=== PATIENT | male | born 1995 | race Caucasian/White ===

== ENCOUNTER 2020-12-02 07:53 | Emergency (ER) | payer BC, SELFPAY ==
--- NOTE | ~2020-12-02 | CT_ITS ---
EXAMINATION: CT abdomen pelvis w con INDICATION: Right lower quadrant abdominal pain TECHNIQUE: Computed tomographic images of the abdomen and pelvis were obtained after the administrati on of 100 cc of Omnipaque 350 intravenous contrast. The dose-length product (DLP) was 197.46 mGy-cm. Automated exposure control and iterative reconstruction technique were employed. COMPARISON: None available FINDINGS: The lung bases are clear. The heart size is normal. The liver, spleen, pancreas, gallbladde r, and adrenal glands are normal. Cysts of the left kidney measure up to 11 mm. The right kidney is u nremarkable. No pathologically enlarged abdominal or pelvic lymph nodes are identified. There is no f ree intraperitoneal gas or evidence of bowel obstruction. The appendix is normal. The visualized osse ous structures are unremarkable. IMPRESSION: 1. No CT correlate for the patient's symptoms. Reviewed, dictated and finalized at location B.
[2020-12-02 08:31] VITALS: BP 125/79; PULSE 55; RESP 16; TEMP 36.1; O2SAT 100
[2020-12-02 08:35] LABS: Basophils Absolute Auto 0.1 K/mm3 (0.0-0.1); Basophils Percent Auto 0.7 % (0.2-1.2); Eosinophils Absolute Auto 0.5 K/mm3 (0-0.3); Eosinophils Percent Auto 5.6 % (0-4.4); Hematocrit 46.8 % (42.0-52.0); Hemoglobin 15.4 g/dL (14.0-18.0); Immature Granulocyte Absolute 0.02 K/mm3 (0.00-0.031); Immature Granulocyte Percent A 0.2 % (0-0.5); Lymphocytes Absolute Auto 1.95 K/mm3 (0.9-3.2); Lymphocytes Percent Auto 23.1 % (18.3-44.2); Mean Corpuscular HGB Conc 32.9 g/dl (32-36); Mean Corpuscular Hemoglobin 29.8 pg (26-34); Mean Corpuscular Volume 90.5 fl (80-100); Mean Platelet Volume 10.7 fl (7.4-10.4); Monocytes Absolute Auto 0.9 K/mm3 (0.1-0.6); Monocytes Percent Auto 10.5 % (2.6-8.5); Neutrophils Absolute Auto 5.1 K/mm3 (1.3-6.7); Neutrophils Percent Auto 59.9 % (45.5-73.1); Platelet Count Result 254 k/mm3 (150-375); Red Blood Count 5.17 M/mm3 (4.6-6.20); Red Cell Distribution Width 12.2 % (11.5-14.5); White Blood Count 8.5 K/mm3 (4.5-10.0)
[2020-12-02 08:42] LABS: Add Urine Microscopic? YES; Appearance Urine Cloudy (Clear); Bacteria Urine Trace /hpf; Bilirubin Urine 1+ (Negative); Blood Urine 2+ (Negative); Calcium Oxalate Crystals Urine Present /hpf; Color Urine Amber (Yellow); Glucose Urine UA Negative (Negative); Ketones Urine Trace mg/dL (Negative); Leukocyte Esterase Ur Negative LEU/UL (Negative); Mucus Urine Heavy /lpf; Nitrate Urine Negative (Negative); Protein Urine 2+ mg/dL (Negative); RBC Urine 0-2 /hpf (0-2); Squamous Epithelial Cell Urine Rare /hpf (Few)
[2020-12-02 08:45] LABS: Anion Gap 12 mmol/L (8-16); Blood Urea Nitrogen 18 mg/dL (9-20); Carbon Dioxide 26 mmol/L (22-30); Chloride 101 mmol/L (98-107); Estimated CRCL calculation 78 ml/min; Estimated Glomerular Filt Rate > 60; Glucose 113 mg/dL (65-110); Potassium 3.8 mmol/L (3.4-5.0); Sodium 139 mmol/L (137-145)
[2020-12-02 08:55] LABS: Specific Grav Ur 1.035 (1.001-1.035)
--- NOTE | 2020-12-02 08:55 | ED.GENADULT ---
HPI - General Adult General Chief complaint: Abdominal Pain Stated complaint: abd pain Time Seen by Provider: 12/02/20 08:55 Source: patient Mode of arrival: ambulatory Limitations: no limitations History of Present Illness HPI narrative: Patient is a 25-year-old male who presents for evaluation of right-sided abdominal pain. Patient reports sharp pain in his right side which is severe in nature. He denies any radiation of the pain. He denies testicular pain. No previous history such as this. He has associated nausea and vomiting. He reports mild diarrhea. Denies constipation. He denies any history of chronic abdominal pain. No history of intra-abdominal surgeries. Patient does not drink alcohol. He reports marijuana use, denies other drug use. He denies any chest pain or shortness of breath. Denies fever or chills. He denies penile pain or discharge. Related Data Allergies Allergy/AdvReac Type Severity Reaction Status Date / Time risperidone Allergy Mild Hives / Verified 02/20/16 19:52 Red Face [place] Allergy Severe Swelling Uncoded 02/20/16 19:52 Review of Systems Review of Systems: CONSTITUTIONAL: Denies fever HEENT: Denies congestion or rhinorrhea CARDIOVASCULAR: Denies chest pain RESPIRATORY: Denies cough or dyspnea. GASTROINTESTINAL: Reports abdominal pain and nausea : reports mild dysuria SKIN: Denies rash MUSCULOSKELETAL: Denies back pain NEUROLOGIC: Denies headache [facility] Social History Social History (Updated 12/02/20 @ 09:18 by Maria M Ambrosio MD) Smoking status: Current every day smoker Tobacco type: cigarettes Alcohol intake: former Alcohol use details: socially, no alcohol for past three weeks Substance use: current Substance use type: marijuana Living arrangements: with family Gender identity (if verbalized by the patient): Male Exam Narrative: GENERAL: Awake, alert, conversant, tearful HEAD: Normocephalic, atraumatic. EYES: PERRLA and EOMI. ENT: Nares clear, no rhinorrhea or epistaxis. Mucous membranes moist. NECK: Supple. CHEST: No respiratory distress, breathing even and non labored HEART: Regular rate, sinus rhythm ABDOMEN:Non distended, tender in the right lower quadrant with guarding, no rebound, nonrigid, no epigastric tenderness, no left upper or left lower quadrant tenderness EXTREMITIES: Normal range of motion. No edema. SKIN: Warm, dry, no rash. NEURO:No focal deficits. Alert and oriented x3 Course Vital Signs Vital signs: Vital Signs Temperature 36.1 C L 12/02/20 08:31 Pulse Rate 55 L 12/02/20 08:31 Respiratory Rate 16 12/02/20 08:31 Blood Pressure 125/79 12/02/20 08:31 Pulse Oximetry 100 12/02/20 08:31 Temperature 36.1 C L 12/02/20 08:31 Pulse Rate 87 12/02/20 14:14 Respiratory Rate 15 12/02/20 14:14 Blood Pressure 116/70 12/02/20 14:14 Pulse Oximetry 98 12/02/20 14:14 Medical Decision Making MDM Narrative Medical decision making narrative: Patient presenting for evaluation of right-sided lower abdominal pain. At the time of assessment, patient is quite tearful, has right lower quadrant abdominal pain with guarding present. Initial presentation is concern for possible nephrolithiasis or appendicitis. Lab and imaging evaluations are reviewed and patient has no leukocytosis, no evidence of acute intra-abdominal pathology on imaging. Urinalysis does have some hematuria present, perhaps patient did pass a small kidney stone prior to arrival or evaluation. As he is also endorsing dysuria, I feel that we can treat patient with oral antibiotics as this may be consistent with infection. Pt with low risk factors by history for STI (other than age) as he is monogamous with his . He denies any penile discharge, however will send UA for G/C as well. Patient reassessed and his right lower quadrant pain on exam is very mild. Pt without testicular pain to be consistent with torsion. 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
[2020-12-02] MEDS: SODIUM CHLORIDE 0.9% IV 1,000 ML 999 ML IV CONT (09:24)
[2020-12-02] MEDS: MORPHINE SULFATE (*CRX) 4 MG/ML INJ IV PUSH (09:24)
[2020-12-02] MEDS: ONDANSETRON INJ 4 MG/2 ML VIAL IV PUSH (09:24)
[2020-12-02 10:04] LABS: Alanine Aminotransferase 13 U/L (4-50); Alkaline Phosphatase 84 U/L (38-126); Aspartate Amino Transferase 25 U/L (17-59); Bilirubin,Total 1.2 mg/dL (0.2-1.3); Lipase 50 U/L (23-300)
[2020-12-02 10:38] VITALS: BP 107/59; PULSE 51; RESP 15; O2SAT 100
[2020-12-02 11:40] VITALS: BP 106/63; PULSE 57; RESP 17; O2SAT 98
[2020-12-02 12:27] VITALS: BP 115/55; PULSE 58; RESP 15; O2SAT 100
[2020-12-02] MEDS: KETOROLAC 15 MG/ML VIAL (*BKC) IV PUSH (13:08)
[2020-12-02 14:14] VITALS: BP 116/70; PULSE 87; RESP 15; O2SAT 98
== END 2020-12-02 14:16 | disposition home or self-care (01) ==
PROVIDERS: Emergency Provider Emergency Medicine
DX: E86.0 Dehydration (principal); R10.9 Unspecified abdominal pain; R31.9 Hematuria, unspecified; F17.200 Nicotine dependence, unspecified, uncomplicated
CPT/HCPCS: 36415; 74177; 80048; 80076; 81001; 83690; 85025; 87491; 87591; 96361; 96374; 96375; 99284; J1885; J2270; J2405; J7030; Q9967

== ENCOUNTER 2020-12-03 00:10 | Emergency (ER) | payer BC, SELFPAY ==
[2020-12-03 00:14] VITALS: BP 116/66; PULSE 53; RESP 17; TEMP 36.8; O2SAT 99
[2020-12-03 03:05] VITALS: BP 107/77; PULSE 47; RESP 14; O2SAT 100
--- NOTE | 2020-12-03 03:05 | PC.NURSE ---
VORB ERP Lynch no orders to complete on this patient at this time.
--- NOTE | 2020-12-03 04:20 | PC.NURSE ---
Pt. tearful on stretcher requesting pain medication. no orders at this time.
[2020-12-03 04:30] VITALS: BP 116/74; PULSE 74; RESP 19; O2SAT 97
[2020-12-03] MEDS: KETOROLAC (*BKC) 60 MG/2 ML VIAL IM (04:57)
[2020-12-03] MEDS: CYCLOBENZAPRINE HCL 10 MG TABLET PO (04:58)
[2020-12-03 05:30] VITALS: BP 121/72; PULSE 51; RESP 17; O2SAT 99
--- NOTE | 2020-12-03 05:54 | ED.GENADULT ---
HPI - General Adult General Chief complaint: Urogenital-Male Stated complaint: flank pain Time Seen by Provider: 12/03/20 04:23 Source: patient and RN notes reviewed Mode of arrival: ambulatory Limitations: no limitations History of Present Illness HPI narrative: This is a 25 year old male who presents for right flank pain. Patient was evaluated for right flank pain yesterday morning. He had labs, UA and CT abdomen /pelvis performed. His test were unremarkable other than possible UTI. He was discharge with bentyl , antibiotics and ibuprofen. PAtient states his pain resolved at discharge, but his pain returned last night. His pain is located right lower back and he states it does not radiate. He had nausea and vomiting yesterday but he denies nausea and vomiting tonight with his pain. He does not have fever or chills. He denies testicular pain or swelling. He states his pain is intermittent and sharp, and it seems worse with movement. Related Data Allergies Allergy/AdvReac Type Severity Reaction Status Date / Time risperidone Allergy Mild Hives / Verified 02/20/16 19:52 Red Face [place] Allergy Severe Swelling Uncoded 02/20/16 19:52 Review of Systems Review of Systems: All systems reviewed & are unremarkable except as noted in HPI and below PMFSH Past Medical History Medical History (Updated 12/03/20 @ 06:01 by Brandi Lynch MD) Patient denies significant medical history Social History Social History (Updated 12/02/20 @ 09:18 by Maria M Ambrosio MD) Smoking status: Current every day smoker Tobacco type: cigarettes Alcohol intake: former Alcohol use details: socially, no alcohol for past three weeks Substance use: current Substance use type: marijuana Gender identity (if verbalized by the patient): Male Exam Const: General: no acute distress and alert Orientation/consciousness: patient oriented x3 Eyes: EOM: EOMs intact bilaterally Chest: Chest palpation & inspection: normal inspection of the chest Resp: Effort & Inspection: normal respiratory effort and no retractions Auscultation: clear to auscultation bilaterally Cardio: Rate: regular rate Rhythm: regular rhythm Heart sounds: no murmurs GI: GI Palp: Yes Soft to palpation, No Tenderness to palpation present (GI) and No Guarding due to palpation present (GI) Auscultation: normal bowel sounds : General: Yes no CVA tenderness Penis: Yes circumcised Scrotum: scrotum normal Testes: epididymides normal Skin: General skin exam: normal color Rashes: no rashes Neuro: General: patient oriented x3, moves all extremities and CN's II-XI intact bilaterally Course Reevaluation(s) Reevaluation #1: PAtient states he feels better and he is ready for discharge home. I will prescribe muscle relaxer. Date: 12/03/20 Time: 05:58 Vital Signs Vital signs: Vital Signs Temperature 98.2 F 12/03/20 00:14 Pulse Rate 53 L 12/03/20 00:14 Respiratory Rate 17 12/03/20 00:14 Blood Pressure 116/66 12/03/20 00:14 Pulse Oximetry 99 12/03/20 00:14 Temperature 98.2 F 12/03/20 00:14 Pulse Rate 49 L 12/03/20 06:00 Respiratory Rate 14 12/03/20 06:00 Blood Pressure 128/71 12/03/20 06:00 Pulse Oximetry 99 12/03/20 06:00 Medical Decision Making Vital Signs Vital Signs: Vital Signs Temperature 98.2 F 12/03/20 00:14 Pulse Rate 53 L 12/03/20 00:14 Respiratory Rate 17 12/03/20 00:14 Blood Pressure 116/66 12/03/20 00:14 Pulse Oximetry 99 12/03/20 00:14 Temperature 98.2 F 12/03/20 00:14 Pulse Rate 49 L 12/03/20 06:00 Respiratory Rate 14 12/03/20 06:00 Blood Pressure 128/71 12/03/20 06:00 Pulse Oximetry 99 12/03/20 06:00 Lab Data Lab results reviewed: Yes I reviewed the patient's lab results. Discharge Plan Discharge Clinical Impression: Acute right flank pain, Spasm of muscle of lower back Patient Disposition: Home, Self-Care Condition: Stable Instruction
[2020-12-03 06:00] VITALS: BP 128/71; PULSE 49; RESP 14; O2SAT 99
== END 2020-12-03 06:00 | disposition home or self-care (01) ==
PROVIDERS: Emergency Provider General Practice
DX: R10.9 Unspecified abdominal pain (principal); M62.830 Muscle spasm of back; F17.210 Nicotine dependence, cigarettes, uncomplicated
CPT/HCPCS: 96372; 99283; A9270; J1885